=== PATIENT | male | born 1975 | race Caucasian/White ===

== ENCOUNTER 2023-02-28 16:15 | Emergency (ER) | payer OTHER, SELFPAY ==
--- NOTE | ~2023-02-28 | CT_ITS ---
EXAMINATION: CT ABDOMEN AND PELVIS WITH CONTRAST CLINICAL INFORMATION: Pain and vomiting. COMPARISON: CT scan of the abdomen and pelvis dated 08/26/2018 and 04/18/2018. TECHNIQUE: Multidetector CT volumetric acquisition of the abdomen and pelvis was performed after the administration of 85 mL of intravenous Omnipaque 350. The data set was reformatted in the sagittal and coronal planes and reviewed on an independent workstation. This CT examination was performed using dose optimization techniques as appropriate, variously including the following: *Automated exposure control *Adjustment of mA and/or kV according to patient size (this includes techniques or standardized protocols for targeted exams where dose is matched to indication/reason for exam; i.e. extremities or head) *Use of iterative reconstruction technique DLP: 658 mGy-cm. FINDINGS: LOWER CHEST: There are tiny peripheral 2-4 mm solid noncalcified pulmonary nodules seen in the right middle lobe (series 4, image 792), lingula (series 4, image 66), and in the left lower lobe (series 4, image 131) unchanged dating back to 04/18/2018, consistent with benign nodules, that warrant no additional imaging follow-up as per the Fleischner criteria. Small hiatal hernia is seen. LIVER, GALLBLADDER, BILIARY TREE: Liver normal size and attenuation. No focal cystic or solid mass or intra-or extrahepatic ductal dilatation. Hepatic and portal veins patent. Gallbladder partially distended and within normal limits. PANCREAS: Normal. No ductal dilatation, mass, or surrounding stranding. SPLEEN: Normal size and appearance. Splenic vein patent. ADRENAL GLANDS AND KIDNEYS: Adrenal glands normal. Kidneys bilaterally symmetric in size and function. Bilateral variably sized thin-walled low-attenuation masses are seen, the larger of which consistent with benign renal cysts, and the smaller of which are too small to be characterized, but statistically also most likely represent cysts. No hydronephrosis, nephrolithiasis or perinephric stranding. URETERS AND BLADDER: Ureters decompressed and within normal limits. Bladder partially distended and within normal limits. PELVIC ORGANS: Unremarkable. GASTROINTESTINAL TRACT: There is severe sigmoid and distal descending colonic diverticulosis with chronic wall thickening. No definite superimposed acute inflammatory process is seen. Other scattered colonic diverticula are also seen. Small bowel loops are decompressed and unremarkable. Appendix in right lower quadrant normal. ABDOMINAL WALL: There is a moderate-sized fat-containing direct left inguinal hernia. There is evidence of prior right inguinal hernia repair with hernia mesh seen in place. No definite recurrent right inguinal hernia seen. Prominent cremasteric reflex of the right testicle is noted with superior displacement of the testicle within the inguinal canal. Tiny fat-containing umbilical hernia. LYMPHOVASCULAR STRUCTURES: Abdominal aorta normal in caliber. Minimal atherosclerotic calcifications of the aortic bifurcation and iliac arteries seen. No periaortic collections. No abdominal or pelvic adenopathy or free fluid collection. BONES: Unremarkable. CT/CT abdomen pelvis w IV con IMPRESSION: 1. No acute intra-abdominal or pelvic findings seen. 2. Severe sigmoid and distal descending colonic diverticulosis with chronic wall thickening. No definite superimposed acute inflammatory process is seen. 3. Bilateral renal masses, statistically most likely cysts. These findings do not warrant additional imaging follow-up 4. Moderate-sized fat-containing direct left inguinal hernia and tiny fat-containing umbilical hernia. 5. Evidence of prior right inguinal hernia repair with hernia mesh seen in place. No definite recurrent right inguinal hernia seen. 6. Small hiatal hernia.
[2023-02-28 16:28] VITALS: BP 145/103; PULSE 54; RESP 20; TEMP 36.7; O2SAT 100; BMI 26.4
--- NOTE | 2023-02-28 16:35 | ED_ITS ---
HPI - General Adult General Chief complaint: Abdominal Pain <LUKASZ Manuel - Last Filed: 03/01/23 12:26> Stated complaint: panic attack <LUKASZ Manuel - Last Filed: 03/01/23 12:26> Time Seen by Provider: 02/28/23 17:27 <LUKASZ Manuel - Last Filed: 03/01/23 12:26> Source: patient, family, RN notes reviewed and old records reviewed <Baron Renee - Last Filed: 02/28/23 22:16> Mode of arrival: ambulatory <Baron Renee - Last Filed: 02/28/23 22:16> Limitations: no limitations <Baron Renee - Last Filed: 02/28/23 22:16> History of Present Illness HPI narrative: He a 47-year-old male with reported past medical history significant for gastroparesis presents for evaluation of abdominal pain, vomiting. This patient reports that he had vomiting started this morning around 9:00 a.m. He reports diffuse abdominal pain mostly ?central? His pain is 9/10. The patient reports that he has to have similar episodes approximately once a month He has been doing quite well for last 2 or 3 years Reports a history of hernia repair but no other abdominal surgeries Patient reports having had a small bowel movement this morning and continues to pass gas <Baron Renee - Last Filed: 02/28/23 22:16> Related Data Home medications: Previous Rx's Medication Instructions Recorded metoclopramide HCl 10 mg tablet 10 mg PO Q6H PRN nausea and 02/28/23 (Reglan) vomiting #20 tabs <LUKASZ Manuel - Last Filed: 03/01/23 12:26> Allergies/adverse reactions: Allergies Allergy/AdvReac Type Severity Reaction Status Date / Time No Known Allergies Allergy Verified 02/28/23 16:28 <LUKASZ Manuel Last Filed: 03/01/23 12:26> Review of Systems Constitutional: Constitutional: Reports as per HPI, Reports chills, Denies fatigue, Denies fever(s) and Denies headache(s) <Baron Renee - Last Filed: 02/28/23 22:16> ENT: Denies headache(s) <Baron Renee - Last Filed: 02/28/23 22:16> Cardiovascular: Cardiovascular: Denies chest pain and Denies dyspnea <Baron Renee Last Filed: 02/28/23 22:16> Respiratory: Respiratory: Denies cough and Denies dyspnea <Baron Fermin Last Filed: 02/28/23 22:16> Gastrointestinal: Gastrointestinal: Reports abdominal pain, Reports nausea and Reports vomiting <Baron Fermin Last Filed: 02/28/23 22:16> Genitourinary: Genitourinary: Denies difficulty urinating and Denies dysuria <Baron Fermin Last Filed: 02/28/23 22:16> Neurologic: Denies headache(s) and Denies focal weakness <Baron Renee Last Filed: 02/28/23 22:16> Endocrine: Endocrine: Denies fatigue <Baron Fermin Last Filed: 02/28/23 22:16> [facility] Social History Social History: Social History Advance Directives: No Advance Directives Information Provided: No <LUKASZ Manuel - Last Filed: 03/01/23 12:26> Physical Exam ED Vital Signs: Vital Signs - 24 hr 02/28/23 16:28 02/28/23 17:56 Temperature 98.1 F Pulse Rate 54 61 Respiratory Rate 20 16 Blood Pressure 145/103 H 141/92 H Pulse Oximetry 100 100 Oxygen Delivery Method Room Air Room Air BMI result Body Mass Index 26.4 <LUKASZ Manuel - Last Filed: 03/01/23 12:26> Vital Signs - 24 hr 02/28/23 16:28 02/28/23 17:56 Temperature 98.1 F Pulse Rate 54 61 Respiratory Rate 20 16 Blood Pressure 145/103 H 141/92 H Pulse Oximetry 100 100 Oxygen Delivery Method Room Air Room Air BMI result Body Mass Index 26.4 <Baron Renee Last Filed: 02/28/23 22:16> Const General: healthy appearing, comfortable, no acute distress, alert and awake <Baron Renee - Last Filed: 02/28/23 22:16> Nutritional Appearance: well nourished <Baron Renee Last Filed: 02/28/23 22:16> Orientation/consciousness: patient oriented x3 < Last Filed: 02/28/23 22:16> HENMT Head: Yes normocephalic and Yes atraumatic < Last Filed: 02/28/23 22:16> Throat: Yes posterior oropharynx normal < Last Filed: 02/28/23 22:16> Eyes Eyelids: Yes eyelids normal < Last Filed: 02/28/23 22:16> Conjunctivae: conjunctivae normal < Last Filed: 02/28/23 22:16> Sclerae: sclerae normal < Last Filed: 02/28/23 22:16> Corneas: corneas normal < Last Filed: 02/28/23 22:16> Pupils: Equal, round and reactive pupils present < Last Filed: 02/28/23 22:16> EOM: EOMs intact bilaterally < Last Filed: 02/28/23 22:16> Neck Neck: Yes full ROM < Last Filed: 02/28/23 22:16> Resp Effort & Inspection: normal respiratory effort, able to speak in complete sentences, no audible wheezes and not labored < Last Filed: 02/28/23 22:16> Auscultation: clear to auscultation bilaterally < Last Filed: 02/28/23 22:16> Cardio Rate: regular rate < Last Filed: 02/28/23 22:16> Rhythm: regular rhythm < Last Filed: 02/28/23 22:16> GI Inspection: No distended < Last Filed: 02/28/23 22:16> Palpation (GI): Soft to palpation, not firm, Tenderness to palpation present (GI) (Diffusely tender to palpation), Guarding due to palpation present (GI) and not rigid < Last Filed: 02/28/23 22:16> Auscultation: normoactive bowel sounds <Baron Renee - Last Filed: 02/28/23 22:16> Skin General skin exam: no rashes or lesions noted and elasticity normal <Baron Renee - Last Filed: 02/28/23 22:16> Neuro General: patient oriented x3 <Baron Renee - Last Filed: 02/28/23 22:16> Cranial nerves: Yes CN's II-XII intact bilaterally, Yes Equal, round and reactive pupils present and Yes Bilaterally intact EOM present <Baron Renee - Last Filed: 02/28/23 22:16> Cognition (Neuro): normal cognition <Baron Renee - Last Filed: 02/28/23 22:16> Extrem Other: Moving all extremities well without any obvious deformities <Baron Renee - Last Filed: 02/28/23 22:16> Course Course Course Narrative: RME: 47 yold male presents to the ED with abdominal pain with increase urinary urengcy and hard stool. negative for chest pain. labs ordered and uA <LUKASZ Manuel - Last Filed: 03/01/23 12:26> Reevaluation(s) Reevaluation #1: Patient reports feeling much better and requesting discharge, his will pick him up. Will discharge the patient with Reglan <Baron Renee - Last Filed: 02/28/23 22:16> Time: 22:14 <Baron Renee - Last Filed: 02/28/23 22:16> Medications Administered Discontinued Medications Generic Name Dose Route Start Last Admin Trade Name Freq PRN Reason Stop Dose Admin Haloperidol Lactate 2.5 mg 02/28/23 20:44 02/28/23 20:50 Haloperidol Lactate 5 Mg/Ml Vial IVPUSH 02/28/23 20:45 2.5 mg STAT STA Administration Sodium Chloride 1,000 mls @ 999 mls/hr 02/28/23 17:15 02/28/23 19:01 Ns IV 02/28/23 18:15 Infused .Q1H1M CARINA Infusion Sodium Chloride 1,000 mls @ 999 mls/hr 02/28/23 17:45 02/28/23 19:01 Ns IV 02/28/23 18:45 Infused .Q1H1M CARINA Infusion Iohexol 100 ml 02/28/23 18:41 02/28/23 18:42 Iohexol 350 Mg/Ml 100 Ml Infus..Btl IV 02/28/23 18:42 85 ml ONCE ONE Administration Lorazepam 1 mg 02/28/23 17:35 02/28/23 17:48 Lorazepam 2 Mg/Ml Vial IVPUSH 02/28/23 17:36 1 mg ONCE ONE Administration Metoclopramide HCl 10 mg 02/28/23 17:35 02/28/23 17:49 Metoclopramide Hcl 10 Mg/2 Ml Vial IVPUSH 02/28/23 17:36 10 mg ONCE ONE Administration Ondansetron HCl 4 mg 02/28/23 17:12 02/28/23 17:15 Ondansetron Hcl 4 Mg/2 Ml Vial IVPUSH 02/28/23 17:13 4 mg ONCE ONE Administration <LUKASZ Manuel - Last Filed: 03/01/23 12:26> Medications Administered Discontinued Medications Generic Name Dose Route Start Last Admin Trade Name Freq PRN Reason Stop Dose Admin Haloperidol Lactate 2.5 mg 02/28/23 20:44 02/28/23 20:50 Haloperidol Lactate 5 Mg/Ml Vial IVPUSH 02/28/23 20:45 2.5 mg STAT STA Administration Sodium Chloride 1,000 mls @ 999 mls/hr 02/28/23 17:15 02/28/23 19:01 Ns IV 02/28/23 18:15 Infused .Q1H1M CARINA Infusion Sodium Chloride 1,000 mls @ 999 mls/hr 02/28/23 17:45 02/28/23 19:01 Ns IV 02/28/23 18:45 Infused .Q1H1M CARINA Infusion Iohexol 100 ml 02/28/23 18:41 02/28/23 18:42 Iohexol 350 Mg/Ml 100 Ml Infus..Btl IV 02/28/23 18:42 85 ml ONCE ONE Administration Lorazepam 1 mg 02/28/23 17:35 02/28/23 17:48 Lorazepam 2 Mg/Ml Vial IVPUSH 02/28/23 17:36 1 mg ONCE ONE Administration Metoclopramide HCl 10 mg 02/28/23 17:35 02/28/23 17:49 Metoclopramide Hcl 10 Mg/2 Ml Vial IVPUSH 02/28/23 17:36 10 mg ONCE ONE Administration Ondansetron HCl 4 mg 02/28/23 17:12 02/28/23 17:15 Ondansetron Hcl 4 Mg/2 Ml Vial IVPUSH 02/28/23 17:13 4 mg ONCE ONE Administration <Baron Renee - Last Filed: 02/28/23 22:16> Medical Decision Making Medical Decision Making MDM Narrative: 47-year-old male with past medical history significant for gastroparesis presents for evaluation of abdominal pain and vomiting. He reports that he has a history of similar episodes in the past. Will treat with IV fluids, Reglan, Ativan as reports that about a upper past. Will get a CT scan of the abdomen pelvis as the patient is quite tender and has a mild leukocytosis. His abdomen was soft, nondistended <Baron Renee - Last Filed: 02/28/23 22:16> Differential Diagnosis Gastroparesis Ileus Small-bowel obstruction Cholelithiasis Acute cholecystitis Gastroenteritis Cannabis hyperemesis syndrome <Baron Renee - Last Filed: 02/28/23 22:16> Lab Data MDM Lab Attestation statement: I reviewed the patient's lab results. <Baron Renee - Last Filed: 02/28/23 22:16> Result Diagrams: 02/28/23 17:09 02/28/23 17:09 <LUKASZ Manuel - Last Filed: 03/01/23 12:26> Labs: Lab Results 02/28/23 02/28/23 02/28/23 Range/Units 17:09 17:09 17:09 WBC 12.5 H (4.8-10.8) X10*3/uL RBC 5.32 (4.60-5.80) X10*6/uL Hgb 16.9 (14.0-18.0) g/dl Hct 47.4 (42.0-52.0) % MCV 89.1 (80.0-98.0) fL MCH 31.8 (27.0-33.0) pg MCHC 35.7 (31.0-36.0) g/dl RDW 11.8 (11.0-16.0) % Plt Count 317 (160-400) X10*3/uL MPV 9.0 L (9.4-12.4) fL Immature Gran % (Auto) 0.4 (0.0-0.4) % Neut % (Auto) 89.6 H (45-73) % Lymph % (Auto) 6.3 L (20-40) % [place] % (Auto) 3.2 (2-11) % Eos % (Auto) 0.2 (0-4) % Baso % (Auto) 0.3 (0-2) % Lymph # (Auto) 0.8 L (1.2-4.9) X10*3/uL [place] # (Auto) 0.4 (0.1-1.2) X10*3/uL Eos # (Auto) 0.0 (0.0-0.4) X10*3/uL Baso # (Auto) 0.0 (0.0-0.2) X10*3/uL Abs Immat Gran (auto) 0.05 H (0.00-0.03) X10*3/uL Absolute Neuts (auto) 11.2 H (2.0-8.3) x10*3/uL Absolute Nucleated RBC 0.000 (0.0-0.012) X10*3/uL Nucleated RBC % (auto) 0.0 (0.0-0.2) /100WBC PT 11.0 (10.0-13.1) SEC INR 1.0 (0.9-1.1) APTT 32.6 (26.0-36.4) SEC Sodium 139 (135-145) mmol/L Potassium 4.1 (3.3-5.1) mmol/L Chloride 102 (96-108) mmol/L Carbon Dioxide 26 (22-29) mmol/L Anion Gap 15 (12-20) BUN 12 (9-16) mg/dL Creatinine 1.62 H (0.5-1.4) mg/dL Estim Creat Clear Calc 63.2 Estimated GFR 46 Random Glucose 126 H (60-115) mg/dL Calcium 9.5 (8.4-10.2) mg/dL Total Bilirubin 1.1 H (0.0-1.0) mg/dL AST 17 (5-37) U/L ALT 19 (0-40) U/L Alkaline Phosphatase 70 (39-117) U/L Total Protein 7.2 (6.5-8.0) g/dL Albumin 4.7 (3.5-5.0) g/dL Lipase 23 (8-78) U/L <LUKASZ Manuel - Last Filed: 03/01/23 12:26> Lab Results 02/28/23 02/28/23 02/28/23 Range/Units 17:09 17:09 17:09 WBC 12.5 H (4.8-10.8) X10*3/uL RBC 5.32 (4.60-5.80) X10*6/uL Hgb 16.9 (14.0-18.0) g/dl Hct 47.4 (42.0-52.0) % MCV 89.1 (80.0-98.0) fL MCH 31.8 (27.0-33.0) pg MCHC 35.7 (31.0-36.0) g/dl RDW 11.8 (11.0-16.0) % Plt Count 317 (160-400) X10*3/uL MPV 9.0 L (9.4-12.4) fL Immature Gran % (Auto) 0.4 (0.0-0.4) % Neut % (Auto) 89.6 H (45-73) % Lymph % (Auto) 6.3 L (20-40) % [place] % (Auto) 3.2 (2-11) % Eos % (Auto) 0.2 (0-4) % Baso % (Auto) 0.3 (0-2) % Lymph # (Auto) 0.8 L (1.2-4.9) X10*3/uL [place] # (Auto) 0.4 (0.1-1.2) X10*3/uL Eos # (Auto) 0.0 (0.0-0.4) X10*3/uL Baso # (Auto) 0.0 (0.0-0.2) X10*3/uL Abs Immat Gran (auto) 0.05 H (0.00-0.03) X10*3/uL Absolute Neuts (auto) 11.2 H (2.0-8.3) x10*3/uL Absolute Nucleated RBC 0.000 (0.0-0.012) X10*3/uL Nucleated RBC % (auto) 0.0 (0.0-0.2) /100WBC PT 11.0 (10.0-13.1) SEC INR 1.0 (0.9-1.1) APTT 32.6 (26.0-36.4) SEC Sodium 139 (135-145) mmol/L Potassium 4.1 (3.3-5.1) mmol/L Chloride 102 (96-108) mmol/L Carbon Dioxide 26 (22-29) mmol/L Anion Gap 15 (12-20) BUN 12 (9-16) mg/dL Creatinine 1.62 H (0.5-1.4) mg/dL Estim Creat Clear Calc 63.2 Estimated GFR 46 Random Glucose 126 H (60-115) mg/dL Calcium 9.5 (8.4-10.2) mg/dL Total Bilirubin 1.1 H (0.0-1.0) mg/dL AST 17 (5-37) U/L ALT 19 (0-40) U/L Alkaline Phosphatase 70 (39-117) U/L Total Protein 7.2 (6.5-8.0) g/dL Albumin 4.7 (3.5-5.0) g/dL Lipase 23 (8-78) U/L <Baron Renee - Last Filed: 02/28/23 22:16> Radiology Impression Discussion of test interpretation with radiology: I have reviewed the radiologist's reading. <Baron Renee - Last Filed: 02/28/23 22:16> Discharge Plan Discharge Clinical Impression: Vomiting <LUKASZ Manuel - Last Filed: 03/01/23 12:26> Patient Disposition: Home, Self-Care <LUKASZ Manuel - Last Filed: 03/01/23 12:26> Instructions: Acute Nausea and Vomiting (ED) <LUKASZ Manuel - Last Filed: 03/01/23 12:26> Additional Instructions: Your workup in the emergency department today was reassuring. Your CT scan did not show any significant findings. Take Reglan as needed for nausea and vomiting. Follow-up with your primary doctor and your GI doctor <LUKASZ Manuel - Last Filed: 03/01/23 12:26> Prescriptions: New metoclopramide HCl [Reglan] 10 mg tablet 10 mg PO Q6H PRN (Reason: nausea and vomiting) Qty: 20 0RF <LUKASZ Manuel - Last Filed: 03/01/23 12:26> Interventions: ED Discharge Assessment Last Done: 02/28/23 22:37 <LUKASZ Manuel - Last Filed: 03/01/23 12:26> Discharge Date/Time: 02/28/23 22:39 <LUKASZ Manuel - Last Filed: 03/01/23 12:26>
[2023-02-28 17:12] LABS: MANUAL DIFF FLAG NO
[2023-02-28 17:15] LABS: Basophils Percent Auto 0.3 % (0-2); Eosinophils Percent Auto 0.2 % (0-4); Hematocrit 47.4 % (42.0-52.0); Hemoglobin 16.9 g/dl (14.0-18.0); Imm Gran Abs Auto 0.05 X10*3/uL (0.00-0.03); Imm Gran Pct Auto 0.4 % (0.0-0.4); Lymphocytes Absolute Auto 0.8 X10*3/uL (1.2-4.9); Lymphocytes Percent Auto 6.3 % (20-40); Mean Corpuscular HGB Conc 35.7 g/dl (31.0-36.0); Mean Corpuscular Hemoglobin 31.8 pg (27.0-33.0); Mean Corpuscular Volume 89.1 fL (80.0-98.0); Monocytes Absolute Auto 0.4 X10*3/uL (0.1-1.2); Monocytes Percent Auto 3.2 % (2-11); Neutrophils Absolute Auto 11.2 x10*3/uL (2.0-8.3); Neutrophils Percent Auto 89.6 % (45-73); Platelet Count 317 X10*3/uL (160-400); Red Blood Count 5.32 X10*6/uL (4.60-5.80); Red Cell Distribution Width 11.8 % (11.0-16.0); White Blood Count 12.5 X10*3/uL (4.8-10.8)
[2023-02-28] MEDS: 0.9 % Sodium Chloride 1,000 ML 999 ML IV ×2 (17:15→17:55)
[2023-02-28] MEDS: ondansetron HCL 4 MG/2 ML VIAL IVPUSH (17:15)
[2023-02-28 17:29] LABS: Partial Thromboplastin Time 32.6 SEC (26.0-36.4)
[2023-02-28 17:32] LABS: Alanine Aminotransferase 19 U/L (0-40); Albumin Level 4.7 g/dL (3.5-5.0); Alkaline Phosphatase 70 U/L (39-117); Anion Gap 15 (12-20); Aspartate Amino Transferase 17 U/L (5-37); Bilirubin Total 1.1 mg/dL (0.0-1.0); Blood Urea Nitrogen 12 mg/dL (9-16); Calcium 9.5 mg/dL (8.4-10.2); Carbon Dioxide 26 mmol/L (22-29); Chloride 102 mmol/L (96-108); Creatinine Clr Calc Pharmacy 63.2; Estimated Glomerular Filt Rate 46; Glucose Random 126 mg/dL (60-115); Lipase 23 U/L (8-78); Potassium 4.1 mmol/L (3.3-5.1); Sodium 139 mmol/L (135-145); Total Protein 7.2 g/dL (6.5-8.0)
[2023-02-28] MEDS: LORazepam 2 MG/ML VIAL 1 MG IVPUSH (17:48)
[2023-02-28] MEDS: Metoclopramide HCl 10 MG/2 ML VIAL IVPUSH (17:49)
[2023-02-28 17:56] VITALS: BP 141/92; PULSE 61; RESP 16; O2SAT 100
[2023-02-28] MEDS: iohexoL 350 MG/ML 100 ML INFUS..BTL IV (18:42)
[2023-02-28] MEDS: Haloperidol Lactate 5 MG/ML VIAL 2.5 MG IVPUSH (20:50)
--- NOTE | 2023-02-28 20:55 | PC.NURSE ---
pt dry heaving and Haldol iv given.
== END 2023-02-28 22:39 | disposition home or self-care (01) ==
PROVIDERS: Physician Assistant; Emergency Provider Internal Medicine
DX: F41.0 Panic disorder [episodic paroxysmal anxiety] (principal); R11.2 Nausea with vomiting, unspecified; R39.15 Urgency of urination; K31.84 Gastroparesis; Z79.899 Other long term (current) drug therapy
CPT/HCPCS: 36415; 74177; 80053; 83690; 85025; 85610; 85730; 96361; 96374; 96375; 99284; J2060; J2405; J2765; Q9967